=== PATIENT | female | born 1995 | race Caucasian/White ===

== ENCOUNTER 2018-05-03 18:25 | Emergency (ER) | payer BC ==
[~2018-05-03] VITALS: Ht 167.6 cm; Wt 143.8 kg
[2018-05-03] MEDS ORDERED: IV NORMAL SALINE 1,000ML 1,000 ML IV ONE ×2 (19:00→19:45)
[2018-05-03 19:06] LABS: BASO % 0 % (0-3); EOS % 0 % (0-3); HEMATOCRIT 45.7 % (36.0-47.0); HEMOGLOBIN 15.3 g/dL (12.0-15.5); LYMPH # 0.7 x10^3/uL (1.0-4.8); LYMPH % 4 % (24-48); MEAN CORPUSCULAR HEMOGLOBIN 28 pg (25-35); MEAN CORPUSCULAR HGB CONC 34 g/dL (31-37); MEAN CORPUSCULAR VOLUME 83 fL (79-100); MONO # 0.4 x10^3/uL (0.0-1.1); MONO % 2 % (0-9); NEUT # 18.6 x10^3uL (1.8-7.7); NEUT % 94 % (31-73); PLATELET COUNT 383 x10^3/uL (140-400); RED BLOOD COUNT 5.52 x10^6/uL (3.50-5.40); WHITE BLOOD COUNT 19.7 x10^3/uL (4.0-11.0)
[2018-05-03] MEDS ORDERED: KETOROLAC 30 MG/ML VIAL. ONE (19:09)
[2018-05-03] MEDS ORDERED: ONDANSETRON PF 4 MG/2 ML VIAL. ONE (19:09)
[2018-05-03] MEDS ORDERED: FAMOTIDINE 20 MG/2 ML VIAL ONE (19:10)
[2018-05-03] MEDS ORDERED: KETOROLAC 15 MG/ML VIAL. IV ONE (19:15)
[2018-05-03] MEDS ORDERED: ONDANSETRON PF 4 MG/2 ML VIAL. IV ONE (19:15)
[2018-05-03] MEDS ORDERED: FAMOTIDINE 20 MG/2 ML VIAL IVP ONE (19:15)
[2018-05-03 19:20] LABS: ALBUMIN 3.6 g/dL (3.4-5.0); ALBUMIN/GLOBULIN RATIO 0.9 (1.0-1.7); CALCIUM 9.1 mg/dL (8.5-10.1); CREATININE 0.8 mg/dL (0.6-1.0); GFR 88.1; MAGNESIUM 1.8 mg/dL (1.8-2.4); POTASSIUM 4.2 mmol/L (3.5-5.1); TOTAL BILIRUBIN 0.9 mg/dL (0.2-1.0); TOTAL PROTEIN 7.5 g/dL (6.4-8.2)
[2018-05-03 19:33] LABS: % BANDS 1 % (0-9); % BASOS 1 % (0-3); % LYMPHS 4 % (24-48); % MONOS 3 % (0-10); % SEGS 91 % (35-66)
[2018-05-03 19:34] LABS: PLT ESTIMATE ADEQUATE (ADEQUATE)
[2018-05-03 19:36] LABS: ANISOCYTOSIS SLIGHT
[2018-05-03 19:42] LABS: CLARITY,URINE CLOUDY; COLOR,URINE AMBER
[2018-05-03 19:43] LABS: BACTERIA,URINE FEW /HPF (0-FEW); BILIRUBIN,URINE NEG (NEG); GLUCOSE,URINE NEG (NEG); NITRITE,URINE NEG (NEG); RBC,URINE OCC /HPF (0-2); SQUAMOUS EPITHELIAL CELL,UR MOD /LPF; UROBILINOGEN,URINE 0.2 mg/dL (0.2 mg/dL); WBC,URINE 0 /HPF (0-4)
--- NOTE | 2018-05-03 19:44 | PHYS DOC ---
Past History Past Medical History: No Pertinent History Past Surgical History: Other Alcohol Use: Occasionally Drug Use: Marijuana Adult General Chief Complaint Chief Complaint: NAUSEA/VOMITING/DIARRHEA HPI HPI Patient is a 23-year-old female presents to the ED with nausea/vomiting/ diarrhea since 3 AM after a five-minute prodrome of mid epigastric and left upper quadrant pain. Symptoms started when she was home awake and not exerting herself. Patient reports she doesn't think it is not related to food and she did not eat any new or different foods that were not repaired at home. Patient states that the pain is a 6/10 stabbing pain which is relieved by vomiting and does not radiate anywhere. Her symptoms are aggravated by eating and drinking. Even clear sodas cause her to vomit within minutes. She reports feeling feverish and having some chills, which is accompanied by full body aches but she is unsure if this is because she fell off of a ladder 3 days ago or if it was exacerbated by her current symptoms. Patient denies bowel or bladder changes. Denies . Review of Systems Review of Systems Constitutional: Admits fever and chills. Eyes: Denies change in visual acuity, redness, or eye pain [] HENT: Admits to nasal congestion and sore throat. Respiratory: Denies cough or shortness of breath [] Cardiovascular: Denies chest pain or palpitations. GI: Admits abdominal pain, nausea, vomiting, and diarrhea. Denies bloody stools or melena. : Denies dysuria or hematuria [] Musculoskeletal: Denies back pain or joint pain [] Integument: Denies rash or skin lesions [] Neurologic: Denies headache, focal weakness or sensory changes [] Complete systems were reviewed and found to be within normal limits, except as documented in this note. Current Medications Current Medications Current Medications Medications (Trade) Dose Ordered Sig/Zach Start Time Stop Time Status Last Admin Dose Admin Famotidine (Pepcid Vial) 20 mg STK-MED ONCE 05/03/18 19:10 05/03/18 19:11 DC Ketorolac Tromethamine (Toradol 15mg Vial) 15 mg 1X ONCE 05/03/18 19:15 05/03/18 19:16 DC 05/03/18 19:21 15 MG Ketorolac Tromethamine (Toradol 30mg Vial) 30 mg STK-MED ONCE 05/03/18 19:09 05/03/18 19:10 DC Ondansetron HCl (Zofran) 4 mg STK-MED ONCE 05/03/18 19:09 05/03/18 19:10 DC Sodium Chloride 1,000 ml @ 1,000 mls/hr 1X ONCE 05/03/18 19:00 05/03/18 19:59 05/03/18 19:15 1,000 MLS/HR Allergies Allergies Allergies Coded Allergies Type Severity Reaction Last Updated Verified No Known Drug Allergies 05/03/18 No Physical Exam Physical Exam Constitutional: Well developed, obese, no acute distress, non-toxic appearance. [] HENT: Normocephalic, atraumatic, bilateral TMs normal, oropharynx moist, no oral exudates, nose normal. [] Eyes: EOMI, conjunctiva normal, no discharge. [] Neck: Normal range of motion, no tenderness, supple, no meningeal signs Cardiovascular: Heart rate regular rhythm, no murmur [] Lungs & Thorax: Bilateral breath sounds clear to auscultation [] Abdomen: Bowel sounds x4, soft, slightly tender to palpation RUQ and mid epigastric region. Negative Yeager sign and McBurney's sign. Skin: Warm, dry, no erythema, no rash. [] Back: No tenderness, no CVA tenderness. [] Extremities: No tenderness, ROM intact, no edema. [] Neurologic: Alert and oriented X 3, no focal deficits noted. [] Psychologic: Affect normal, judgement normal, mood normal. [] Current Patient Data Vital Signs Vital Signs Date Time Temp Pulse Resp B/P (MAP) Pulse Ox O2 Delivery O2 Flow Rate FiO2 05/03/18 18:31 98.2 98 18 98 Room Air Lab Results Laboratory Tests Test 05/03/18 18:47 05/03/18 19:14 White Blood Count 19.7 x10^3/uL (4.0-11.0) H Red Blood Count 5.52 x10^6/uL (3.50-5.40) H Hemoglobin 15.3 g/dL (12.0-15.5) Hematocrit 45.7 % (36.0-47.0) Mean Corpuscular Volume 83 fL (79-100) Mean Corpuscular Hemoglobin 28 pg (25-35) Mean Corpuscular Hemoglobin Concent 34 g/dL (31-37) Red Cell Distribution Width 15.0 % (11.5-14.5) H Platelet Count 383 x10^3/uL (140-400) Neutrophils (%) (Auto) 94 % (31-73) H Lymphocytes (%) (Auto) 4 % (24-48) L Monocytes (%) (Auto) 2 % (0-9) Eosinophils (%) (Auto) 0 % (0-3) Basophils (%) (Auto) 0 % (0-3) Neutrophils # (Auto) 18.6 x10^3uL (1.8-7.7) H Lymphocytes # (Auto) 0.7 x10^3/uL (1.0-4.8) L Monocytes # (Auto) 0.4 x10^3/uL (0.0-1.1) Eosinophils # (Auto) 0.0 x10^3/uL (0.0-0.7) Basophils # (Auto) 0.0 x10^3/uL (0.0-0.2) Platelet Estimate Pending Sodium Level 140 mmol/L (136-145) Potassium Level 4.2 mmol/L (3.5-5.1) Chloride Level 103 mmol/L (98-107) Carbon Dioxide Level 23 mmol/L (21-32) Anion Gap 14 (6-14) Blood Urea Nitrogen 14 mg/dL (7-20) Creatinine 0.8 mg/dL (0.6-1.0) Estimated GFR (Cockcroft-Gault) 88.1 BUN/Creatinine Ratio 18 (6-20) Glucose Level 123 mg/dL (70-99) H Calcium Level 9.1 mg/dL (8.5-10.1) Magnesium Level 1.8 mg/dL (1.8-2.4) Total Bilirubin 0.9 mg/dL (0.2-1.0) Aspartate Amino Transferase (AST) 20 U/L (15-37) Alanine Aminotransferase (ALT) 34 U/L (14-59) Alkaline Phosphatase 99 U/L (46-116) Total Protein 7.5 g/dL (6.4-8.2) Albumin 3.6 g/dL (3.4-5.0) Albumin/Globulin Ratio 0.9 (1.0-1.7) L Lipase 83 U/L (73-393) POC Urine HCG, Qualitative hcg negative (Negative) EKG EKG [] Radiology/Procedures Radiology/Procedures PROCEDURE: CT ABD PELV W/ IV CONTRST ONLY Examination: CT ABD PELV W/ IV CONTRST ONLY History: Omni 300 100cc: Intractable N/V with abdominal pain and SIRS+ Comparison/Correlation: None Findings: Axial images of the abdomen and pelvis were obtained following IV contrast. Sagittal and coronal reformatted images were provided. Visualized lung bases are clear. Liver, spleen, pancreas, adrenal glands, and kidneys are normal. No enlarged abdominal or pelvic lymph nodes. No ascites or pelvic free fluid. No extraluminal gas. No bowel obstruction. No inflammatory change about the cecum. Mesenteric lymph nodes are present but not enlarged. No enlarged abdominal or pelvic lymph nodes. Urinary bladder is unremarkable. Bony structures are unremarkable. Impression: No obstruction. Mesenteric lymph nodes are not enlarged and raises question of mesenteritis. Correlate clinically. PQRS Compliance Statement: One or more of the following individualized dose reduction techniques were utilized for this examination: 1. Automated exposure control 2. Adjustment of the mA and/or kV according to patient size 3. Use of iterative reconstruction technique Electronically signed by: Duc Gamboa MD (05/03/2018 9:44 PM) [facility] Course & Med Decision Making Course & Med Decision Making Pertinent Labs and Imaging studies reviewed. (See chart for details) Patient is a 23-year-old female presents to the ED with nausea/vomiting/ diarrhea and mild abdominal pain since 3 AM. Patient was noted to be SIRS positive due to HR > 90 and WBC > 12. IVF hydration given. Symptomatic treatment also provided. Lactate drawn and was 1.1. CT abdomen and pelvis with contrast performed without acute process noted. Patient reports interval improvement of symptoms. Patient stable for discharge with outpatient follow-up with PCP. Discussed findings and plan with patient, who acknowledges understanding and agreement. Dragon Disclaimer Dragon Disclaimer This electronic medical record was generated, in whole or in part, using a voice recognition dictation system. Departure Departure: Impression: Primary Impression: Nausea, vomiting, and diarrhea Disposition: HOME, SELF-CARE Condition: STABLE Referrals: ALMA DELIA ALEXANDRA MD (PCP) Patient Instructions: Diarrhea, [id number], Diet for Diarrhea, Adult, Nausea and Vomiting, [id number] Scripts Ondansetron (ONDANSETRON ODT) 4 Mg Tab.rapdis 1 TAB PO PRN Q6-8HRS PRN for NAUSEA, #16 TAB Prov: FRANKIE ROPER DO 05/03/18 Famotidine (PEPCID) 20 Mg Tablet 20 MG PO BID for gastritis, #14 TAB Prov: FRANKIE ROPER DO 05/03/18 FRANKIE ROPER DO May 03, 2018 19:44
[2018-05-03] MEDS ORDERED: IOHEXOL 300 MG/ML 50 ML VIAL. IV ONE (20:30)
[2018-05-03] MEDS ORDERED: IOHEXOL 300 MG/ML 75 ML VIAL. IV ONE (20:30)
[2018-05-03 20:44] LABS: INFLUENZA A PATIENT NEGATIVE (NEGATIVE); INFLUENZA B PATIENT NEGATIVE (NEGATIVE)
--- NOTE | 2018-05-03 21:47 | RAD ---
Examination: CT ABD PELV W/ IV CONTRST ONLY History: Omni 300 100cc: Intractable N/V with abdominal pain and SIRS+ Comparison/Correlation: None Findings: Axial images of the abdomen and pelvis were obtained following IV contrast. Sagittal and coronal reformatted images were provided. Visualized lung bases are clear. Liver, spleen, pancreas, adrenal glands, and kidneys are normal. No enlarged abdominal or pelvic lymph nodes. No ascites or pelvic free fluid. No extraluminal gas. No bowel obstruction. No inflammatory change about the cecum. Mesenteric lymph nodes are present but not enlarged. No enlarged abdominal or pelvic lymph nodes. Urinary bladder is unremarkable. Bony structures are unremarkable. Impression: No obstruction. Mesenteric lymph nodes are not enlarged and raises question of mesenteritis. Correlate clinically. PQRS Compliance Statement: One or more of the following individualized dose reduction techniques were utilized for this examination: 1. Automated exposure control 2. Adjustment of the mA and/or kV according to patient size 3. Use of iterative reconstruction technique Electronically signed by: Duc Gamboa MD (05/03/2018 9:44 PM) [facility]
[2018-05-03] MEDS ORDERED: ONDA4TAB12 PO (21:57)
[2018-05-03] MEDS ORDERED: FAMO-63 PO (21:57)
[2018-05-03 21:58] VITALS: BP 103/68
== END 2018-05-03 22:00 | disposition home or self-care (01) ==
LOC: ER 18:25
DX: R11.2 Nausea with vomiting, unspecified (principal); R19.7 Diarrhea, unspecified; R10.12 Left upper quadrant pain; W11.XXXA Fall on and from ladder, initial encounter; Y93.89 Activity, other specified; Y92.89 Other specified places as the place of occurrence of the external cause; Y99.8 Other external cause status
CPT/HCPCS: 36415; 74177; 80053; 81001; 81025; 83605; 83690; 83735; 85007; 85025; 87804; 96361; 96374; 96375; 99284; J1885; J2405; J3490; Q9967; J7030